=== PATIENT | female | born 1950 | race Asian ===

== ENCOUNTER 2017-02-14 08:33 | Inpatient (IN) | payer OTHER ==
[~2017-02-14] VITALS: Ht 154.9 cm; Wt 58.1 kg
[2017-02-14 08:33] VITALS: BP_SYST 102
[2017-02-14 09:02] LABS: BASOPHILS # (AUTO) 0.1 K/uL (0.0-0.2); BASOPHILS % (AUTO) 0.6 % (0.0-2.0); EOSINOPHILS # (AUTO) 0.1 K/uL (0.0-0.4); EOSINOPHILS % (AUTO) 1.5 % (0.0-4.0); HEMOGLOBIN 9.6 g/dL (12.0-16.0); LYMPHOCYTES # (AUTO) 0.6 K/uL (1.0-5.5); LYMPHOCYTES % (AUTO) 6.7 % (20.5-51.5); MEAN CORPUSCULAR HEMOGLOBIN 29 pg (27-31); MEAN CORPUSCULAR HGB CONC 33 % (32-36); MEAN CORPUSCULAR VOLUME 87 fL (79.0-98.0); MONOCYTES # (AUTO) 0.8 K/uL (0.0-1.0); MONOCYTES % (AUTO) 8.6 % (1.7-9.3); NEUTROPHILS # (AUTO) 7.2 K/uL (1.8-7.7); NEUTROPHILS % (AUTO) 82.6 % (40.0-70.0); PLATELET COUNT (AUTO) 218 K/uL (130-430); RED BLOOD CELL COUNT(AUTO) 3.34 MIL/uL (4.2-6.2); RED CELL DISTRIBUTION WIDTH 12.7 % (9.0-15.0); WHITE BLOOD COUNT (AUTO) 8.8 K/uL (4.8-10.8)
[2017-02-14 09:06] LABS: CALCIUM 8.3 mg/dL (8.4-11.0); CREATININE 0.69 mg/dL (0.55-1.30)
[2017-02-14 09:11] LABS: INR 1.1 (0.8-1.2); PROTHROMBIN TIME 10.7 SECS (9.5-12.5)
[2017-02-14 09:12] LABS: TOTAL BILIRUBIN 0.7 mg/dL (0.0-1.0)
[2017-02-14 09:14] LABS: POTASSIUM 2.2 mmol/L (3.5-5.1)
[2017-02-14] MEDS ORDERED: KETOROLAC TROMETHAMINE 30 MG VIAL IVP ONE (09:15)
[2017-02-14] MEDS ORDERED: POTASSIUM CHLORIDE 20 MEQ/PKT PACKET PO ONE (09:15)
[2017-02-14] MEDS ORDERED: IOHEXOL 350 mgI/mL, 150 ML INFUS..BTL IV ONE ×2 (09:41→10:57)
[2017-02-14] MEDS ORDERED: DOCU-144 PO (09:44)
[2017-02-14] MEDS ORDERED: ESOM40CA PO (09:44)
[2017-02-14] MEDS ORDERED: PRED5TAB PO (09:44)
[2017-02-14] MEDS ORDERED: PLA200 PO (09:44)
[2017-02-14] MEDS ORDERED: ONDA4TAB5 PO (09:44)
[2017-02-14] MEDS ORDERED: HYDR-4100 PO (09:44)
[2017-02-14] MEDS ORDERED: SPIR25TA PO (09:44)
[2017-02-14] MEDS ORDERED: VALS320T10 PO (09:44)
[2017-02-14] MEDS ORDERED: METO25TA6 PO (09:44)
[2017-02-14] MEDS ORDERED: DIME50TA PO (09:44)
[2017-02-14] MEDS ORDERED: HYDR-1115 PO (09:44)
[2017-02-14] MEDS ORDERED: FERR-57 PO (09:44)
[2017-02-14] MEDS ORDERED: TRAM50TA92 PO (09:44)
[2017-02-14] MEDS ORDERED: NOR10 PO (09:44)
[2017-02-14] MEDS ORDERED: ASPI-1063 PO (09:44)
[2017-02-14 12:35] VITALS: BP_SYST 132
[2017-02-14] MEDS ORDERED: MILK OF MAGNESIA 30 ML UDC PO PRN (14:00)
[2017-02-14] MEDS ORDERED: hydrALAZINE HCL 25 MG TABLET PO PRN (14:00)
[2017-02-14] MEDS ORDERED: HYDROcodone/ACETAMIN 10-325 MG TAB PO PRN (14:00)
[2017-02-14] MEDS ORDERED: NITROGLYCERIN 0.4 MG TAB.SUBL SL PRN (14:15)
[2017-02-14 15:35] VITALS: BP_SYST 129
[2017-02-14 16:24] LABS: CALCIUM 8.3 mg/dL (8.4-11.0); CREATININE 0.84 mg/dL (0.55-1.30)
[2017-02-14 16:28] LABS: POTASSIUM 2.7 mmol/L (3.5-5.1)
[2017-02-14] MEDS ORDERED: POTASSIUM CHLORIDE 20 MEQ TAB.PRT.SR PO ONE (16:45)
[2017-02-14] MEDS ORDERED: POTASSIUM CHLORIDE 40 MEQ, LIDOCAINE JECT 2% PF 100 MG 50 MG in NS 250 ML IV ONE (16:45)
[2017-02-14] MEDS: ONDANSETRON 4 MG ODT TAB PO PRN (17:34)
[2017-02-14 20:00] VITALS: BP_SYST 127
[2017-02-14] MEDS: ATORVASTATIN 20 MG TABLET PO SCH (20:26)
[2017-02-14] MEDS: HYDROXYCHLOROQUINE SULFATE 200 MG TABLET PO SCH (20:26)
[2017-02-14] MEDS: DOCUSATE SODIUM 100 MG CAPSULE PO SCH (20:27)
[2017-02-14] MEDS: SPIRONOLACTONE 25 MG TABLET (ALDACTONE) PO SCH (20:27)
[2017-02-14] MEDS: METOPROLOL TARTRATE 25 MG TABLET PO SCH (20:28)
[2017-02-14] MEDS: PREDNISONE 5 MG TABLET PO SCH (20:28)
[2017-02-14] MEDS ORDERED: ENOXAPARIN SODIUM 60 MG/0.6 ML SYRINGE SUBCUT SCH (21:00)
[2017-02-15] VITALS (7 sets, daily range): BP systolic 121–163
[2017-02-15 07:15] LABS: CALCIUM 8.8 mg/dL (8.4-11.0); CREATININE 0.77 mg/dL (0.55-1.30); PHOSPHORUS 2.8 mg/dL (2.7-4.5); POTASSIUM 4.3 mmol/L (3.5-5.1)
[2017-02-15 07:36] LABS: BASOPHILS % (AUTO) 0.2 % (0.0-2.0); EOSINOPHILS # (AUTO) 0.2 K/uL (0.0-0.4); EOSINOPHILS % (AUTO) 1.7 % (0.0-4.0); HEMATOCRIT 29.5 % (36-48); HEMOGLOBIN 9.9 g/dL (12.0-16.0); LYMPHOCYTES # (AUTO) 0.9 K/uL (1.0-5.5); LYMPHOCYTES % (AUTO) 10.3 % (20.5-51.5); MEAN CORPUSCULAR HEMOGLOBIN 30 pg (27-31); MEAN CORPUSCULAR HGB CONC 34 % (32-36); MEAN CORPUSCULAR VOLUME 90 fL (79.0-98.0); MONOCYTES # (AUTO) 0.9 K/uL (0.0-1.0); MONOCYTES % (AUTO) 10.4 % (1.7-9.3); NEUTROPHILS # (AUTO) 6.8 K/uL (1.8-7.7); NEUTROPHILS % (AUTO) 77.4 % (40.0-70.0); PLATELET COUNT (AUTO) 245 K/uL (130-430); RED BLOOD CELL COUNT(AUTO) 3.27 MIL/uL (4.2-6.2); WHITE BLOOD COUNT (AUTO) 8.8 K/uL (4.8-10.8)
[2017-02-15] MEDS ORDERED: ENOXAPARIN SODIUM 40 MG/0.4 ML SYRINGE SUBCUT SCH (09:00)
[2017-02-15] MEDS ORDERED: REGADENOSON 0.4 MG/5 ML SYRINGE IVP ONE (10:00)
[2017-02-15] MEDS: DOCUSATE SODIUM 100 MG CAPSULE PO SCH ×2 (10:31→20:10)
[2017-02-15] MEDS: ASPIRIN 81 MG TABLET(ECOTRIN) PO SCH (10:31)
[2017-02-15] MEDS: HYDROXYCHLOROQUINE SULFATE 200 MG TABLET PO SCH ×2 (10:31→20:10)
[2017-02-15] MEDS: PREDNISONE 5 MG TABLET PO SCH ×2 (10:31→20:10)
[2017-02-15] MEDS: VALSARTAN 160 MG TABLET (DIOVAN) PO SCH (10:32)
[2017-02-15] MEDS: FERROUS SULFATE 325 MG TABLET.DR PO SCH (10:32)
[2017-02-15] MEDS: SPIRONOLACTONE 25 MG TABLET (ALDACTONE) PO SCH ×2 (10:32→20:12)
[2017-02-15] MEDS: traMADol HCL HCL 50 MG TABLET (ULTRAM) PO PRN (10:33)
[2017-02-15] MEDS: METOPROLOL TARTRATE 25 MG TABLET PO SCH ×2 (10:33→20:11)
[2017-02-15] MEDS: amLODIPine BESYLATE 10 MG TABLET PO SCH (10:33)
[2017-02-15] MEDS: ATORVASTATIN 20 MG TABLET PO SCH (20:10)
[2017-02-16 00:55] VITALS: BP_SYST 136
[2017-02-16 04:00] VITALS: BP_SYST 120
[2017-02-16] MEDS: traMADol HCL HCL 50 MG TABLET (ULTRAM) PO PRN ×2 (04:12→11:04)
[2017-02-16 07:45] VITALS: BP_SYST 147
[2017-02-16] MEDS: VALSARTAN 160 MG TABLET (DIOVAN) PO SCH (09:04)
[2017-02-16] MEDS: ASPIRIN 81 MG TABLET(ECOTRIN) PO SCH (09:05)
[2017-02-16] MEDS: PREDNISONE 5 MG TABLET PO SCH (09:05)
[2017-02-16] MEDS: FERROUS SULFATE 325 MG TABLET.DR PO SCH (09:05)
[2017-02-16] MEDS: METOPROLOL TARTRATE 25 MG TABLET PO SCH (09:05)
[2017-02-16] MEDS: HYDROXYCHLOROQUINE SULFATE 200 MG TABLET PO SCH (09:05)
[2017-02-16] MEDS: DOCUSATE SODIUM 100 MG CAPSULE PO SCH (09:05)
[2017-02-16] MEDS: amLODIPine BESYLATE 10 MG TABLET PO SCH (09:06)
[2017-02-16] MEDS: SPIRONOLACTONE 25 MG TABLET (ALDACTONE) PO SCH (09:06)
[2017-02-16 12:11] VITALS: BP_SYST 137
[2017-02-16 12:47] VITALS: BP_SYST 138
[2017-02-16] MEDS: ONDANSETRON 4 MG ODT TAB PO PRN (14:12)
== END 2017-02-16 14:15 | DRG 313 ==
LOC: SED 08:33 → STU 12:04
PROVIDERS: ADMIT Family Medicine; ATTEND Family Medicine
DX: R07.89 Other chest pain (principal); E87.1 Hypo-osmolality and hyponatremia; D64.9 Anemia, unspecified; I10 Essential (primary) hypertension; E87.6 Hypokalemia; I08.3 Combined rheumatic disorders of mitral, aortic and tricuspid valves; M06.9 Rheumatoid arthritis, unspecified; Z96.651 Presence of right artificial knee joint; M19.90 Unspecified osteoarthritis, unspecified site; Z88.5 Allergy status to narcotic agent; Z79.899 Other long term (current) drug therapy; Z79.82 Long term (current) use of aspirin; Z90.49 Acquired absence of other specified parts of digestive tract; Z90.710 Acquired absence of both cervix and uterus; Z86.73 Personal history of transient ischemic attack (TIA), and cerebral infarction without residual deficits
CPT/HCPCS: 36415; 71010; 71275; 80048; 80053; 82550-TC; 83735-TC; 83880; 84100-TC; 84484; 85025; 85379; 85610-TC; 85730-TC; 87081; 93005; 93017; 93306; 96374; 97116-GP; 99285; J1650; J1885; J2785; J3480; J7050; J7512; Q0162; Q9967